=== PATIENT | male | born 1985 ===

== ENCOUNTER 2018-08-24 10:03 | Outpatient (CLI) | payer BC ==
--- NOTE | 2018-08-24 11:44 | CT ---
CT HEAD WITH AND WITHOUT CONTRAST: INDICATIONS: Headache. Family history of cerebral aneurysm. COMPARISON: None. TECHNIQUE: Multiple axial tomograms obtained through the head without contrast. This was followed by a CT of e head with multiple tomograms obtained following angio protocol with multiplanar reconstruction and 3D post processing. FINDINGS: CT HEAD WITHOUT CONTRAST: The ventricles have normal size and position. There is no mass or edema. No evidence of intracranial hemorrhage. CTA HEAD: The intracranial internal carotid arteries are patent and symmetric. The anterior cerebra l arteries and the middle cerebral arteries appear patent and symmetric. The basilar artery is paten t. The posterior cerebral arteries are unremarkable. No evidence of cerebral aneurysm identified. IMPRESSION: 1. Unremarkable unenhanced CT head. 2. Unremarkable cerebral angio study. No evidence of aneurysm. POS: PAO
[2018-08-24] MEDS ORDERED: ISOVUE-370 76%-LOCM 1 ML ONE (11:52)
== END 2018-08-24 10:04 | disposition home or self-care (01) ==
LOC: BICCT 10:03
PROVIDERS: ATTEND Family Medicine
DX: R51 Headache (principal); Z82.49 Family history of ischemic heart disease and other diseases of the circulatory system
CPT/HCPCS: 70496; Q9966